=== PATIENT | female | born 1995 | race Caucasian/White ===

== ENCOUNTER → 2018-05-25 | Outpatient (REF) | payer BC ==
[2018-05-25 17:21] LABS: PLATELET COUNT, AUTOMATED 245 K/uL (150-450)
== END ==
PROVIDERS: ATTEND Nurse Practitioner Family
DX: R51 Headache (principal)
CPT/HCPCS: 82040; 82247; 82310; 82374; 82435; 82565; 82947; 84075; 84132; 84155; 84295; 84450; 84460; 84520; 85025

== ENCOUNTER → 2018-05-25 | Outpatient (CLI) | payer BC ==
--- NOTE | 2018-05-25 14:31 | RADIOLOGY IMAGING REPORT ---
FACILITY: [facility] [place] PATIENT NAME: Marguerite Morales : 1995 MR: [id number] V: [id number] EXAM DATE: ORDERING PHYSICIAN: DALI BORDEN TECHNOLOGIST: Location: [facility] [place] Patient: Marguerite Morales : 1995 Visit/Account:[id number] Date of Sevice: 05/25/2018 EXAMINATION: CT head without IV contrast HISTORY: Headache, nausea, delayed motor skills TECHNIQUE: Axial CT images of the head were obtained from the vertex to the skull base without IV c ontrast, with coronal and sagittal 2D reconstructed images. One of the following dose optimization techniques was utilized in the performance of this exam: Autom ated exposure control; adjustment of the mA and/or kV according to the patient's size; or use of an i terative reconstruction technique. Specific details can be referenced in the facility's radiology C T exam operational policy. COMPARISON: None. FINDINGS: The intracranial contents are unremarkable. No CT evidence of intracranial hemorrhage, mass lesion, or acute infarct. No midline shift or extra-axial fluid collections. [place]-white differentiation is maintained. The calvarium is intact. There partially visualized mucous retention cysts in both maxillary sinuses . The visualized paranasal sinuses and mastoid air cells are otherwise unopacified. IMPRESSION: No CT evidence of acute intracranial pathology. Report Dictated By: Asad Sherman MD at 05/25/2018 2:23 PM Report E-Signed By: Asad Sherman MD at 05/25/2018 2:27 PM WSN:[id number]
== END ==
LOC: CT 13:41
PROVIDERS: ATTEND Nurse Practitioner Family
DX: R51 Headache (principal); H53.9 Unspecified visual disturbance
CPT/HCPCS: 70450